=== PATIENT | female | born 1985 | race Caucasian/White ===

== ENCOUNTER 2016-09-08 08:53 | Emergency (ER) | payer MEDICAID, OTHER ==
[2016-09-08] MEDS ORDERED: DIPHENHYDRAMINE HCL 50 MG/1 ML VIAL ONE (09:50)
[2016-09-08] MEDS ORDERED: LACTATED RINGERS 1,000 ML ONE (09:50)
[2016-09-08 10:08] LABS: ABSOLUTE NEUTROPHIL COUNT 5.2 K/mm3 (1.8-7.7); BASO % 0.4 % (0.2-1.0); EOS # 0.1 (0.0-0.5); EOS % 1.7 % (0.9-2.9); HEMATOCRIT 34.2 % (37.0-47.0); HEMOGLOBIN 11.5 gm/l (12.0-16.0); IMM NEUT% 0.4 % (0-1); LYMPH # 1.9 (1.0-4.8); MEAN CELL VOLUME 90.5 fl (81.0-99.0); MEAN CORPUSCULAR HEMOGLOBIN 30.4 pg (27.0-31.0); MEAN CORPUSCULAR HGB CONC 33.6 g/dl (33.0-37.0); MONO # 0.8 (0.0-0.8); MONO % 9.7 % (4-12); NEUT % 63.8 % (43-75); PLATELET COUNT 230 K/mm3 (130-400); RED CELL DISTRIBUTION WIDTH 12.4 % (11.5-14.5)
[2016-09-08 10:28] LABS: ALB/GLOB RATIO 1.6 (>1.0); ALBUMIN 3.7 gm/dL (3.5-5.7)
[2016-09-08 11:01] LABS: URINE BILIRUBIN NEGATIVE (NEGATIVE); URINE BLOOD NEGATIVE (NEGATIVE); URINE GLUCOSE (UA) NEGATIVE (NEGATIVE); URINE LEUKOCYTE ESTERASE NEGATIVE (NEGATIVE); URINE NITRITE NEGATIVE (NEGATIVE); URINE PROTEIN NEGATIVE (NEGATIVE); URINE UROBILINOGEN NORMAL (0-1 mg/dl)
[2016-09-08 11:02] LABS: URINE APPEARANCE CLEAR; URINE COLOR YELLOW
== END 2016-09-08 11:21 | disposition home or self-care (01) ==
LOC: ED 08:53
DX: O21.0 Mild hyperemesis gravidarum (principal)
CPT/HCPCS: 83690; 85025; 80053; 83735; 81003; 99283 ×2; 96374; 96361; J1200; J7120

== ENCOUNTER 2016-12-05 14:22 | Emergency (ER) | payer OTHER ==
[2016-12-05] MEDS ORDERED: ALBUTEROL/IPRATROPIUM 2.5/0.5 MG 3 ML/EACH DOSE ONE (14:49)
== END 2016-12-05 15:20 | disposition home or self-care (01) ==
LOC: ED 14:22
DX: O98.812 Other maternal infectious and parasitic diseases complicating pregnancy, second trimester (principal); O99.512 Diseases of the respiratory system complicating pregnancy, second trimester; Z3A.21 21 weeks gestation of pregnancy

== ENCOUNTER 2016-12-06 22:54 | Emergency (ER) | payer OTHER ==
[2016-12-06] MEDS ORDERED: ONDANSETRON 4 MG/2ML 2 ML VIAL ONE (23:36)
[2016-12-06] MEDS ORDERED: SODIUM CHLORIDE 0.9% 1,000 ML ONE (23:37)
[2016-12-07 00:11] LABS: ABSOLUTE NEUTROPHIL COUNT 6.4 K/mm3 (1.8-7.7); BASO % 0.2 % (0.2-1.0); EOS # 0.2 (0.0-0.5); EOS % 2.2 % (0.9-2.9); HEMATOCRIT 34.5 % (37.0-47.0); HEMOGLOBIN 11.4 gm/l (12.0-16.0); IMM NEUT # 0.1 K/mm3 (0-0.2); IMM NEUT% 0.6 % (0-1); LYMPH % 20.8 % (15-45); MEAN CELL VOLUME 92.2 fl (81.0-99.0); MEAN CORPUSCULAR HEMOGLOBIN 30.5 pg (27.0-31.0); MEAN PLATELET VOLUME 9.1 fl (7.4-10.4); MONO % 10.6 % (4-12); NEUT % 65.6 % (43-75); PLATELET COUNT 232 K/mm3 (130-400); RED CELL DISTRIBUTION WIDTH 13.2 % (11.5-14.5)
[2016-12-07 00:24] LABS: ALB/GLOB RATIO 1.2 (>1.0); ALBUMIN 3.7 gm/dL (3.5-5.7); CALCIUM 9.8 mg/dL (8.6-10.3)
[2016-12-07 01:22] LABS: URINE BILIRUBIN NEGATIVE (NEGATIVE); URINE BLOOD NEGATIVE (NEGATIVE); URINE GLUCOSE (UA) NEGATIVE (NEGATIVE); URINE LEUKOCYTE ESTERASE NEGATIVE (NEGATIVE); URINE NITRITE NEGATIVE (NEGATIVE); URINE PROTEIN NEGATIVE (NEGATIVE); URINE UROBILINOGEN NORMAL (0-1 mg/dl)
[2016-12-07 01:25] LABS: URINE APPEARANCE CLEAR; URINE COLOR YELLOW
--- NOTE | 2016-12-07 09:33 | RAD ---
12/07/2016 9:28 AM CHEST - 2 VIEWS History: History of pneumonia. Patient is currently . Comparison: None Findings: Two views of the chest are obtained. The lungs are clear with out effusion or pneumothorax. The cardiomediastinal silhouette is unremarkable.. The osseous structures are intact.. IMPRESSION: No acute intrathoracic process.
== END 2016-12-07 01:22 | disposition home or self-care (01) ==
LOC: ED 22:54
DX: O98.512 Other viral diseases complicating pregnancy, second trimester (principal); B34.9 Viral infection, unspecified; K29.70 Gastritis, unspecified, without bleeding; O21.2 Late vomiting of pregnancy; Z3A.21 21 weeks gestation of pregnancy; Z79.899 Other long term (current) drug therapy; Z88.8 Allergy status to other drugs, medicaments and biological substances
CPT/HCPCS: 83605; 83690; 84702; 85025; 80053; 81003; 71020; 99283 ×2; 96374; 96361; J2405; J7030